=== PATIENT | male | born 1970 | race Caucasian/White ===

== ENCOUNTER 2021-08-17 00:52 | Emergency (ER) | payer BC ==
[~2021-08-17] VITALS: Ht 180.3 cm; Wt 181.4 kg
[2021-08-17 00:52] VITALS: BP_SYST 129
--- NOTE | 2021-08-17 00:52 | NUR ---
Patient biba to bed 7 for evaluation and treatment
--- NOTE | 2021-08-17 01:08 | NUR ---
Dr. Choi [facility] for pt eval
--- NOTE | 2021-08-17 01:12 | NUR ---
PT BIBA TO ED C/O + 1/4 INCH LACERATION TO LEFT LOWER LEG NOTICED AT 12MN, DOES NOT REMEMBER WHAT HAPPENED, NO PAIN, VSS NO S/S OF ACUTE DISTRESS RESTING ON GURNEY RAILS UP
--- NOTE | 2021-08-17 02:06 | NUR ---
VSS pt verbalized feeling no pain, resting in comfort on gurney rails up
[2021-08-17 02:55] VITALS: BP_SYST 129
--- NOTE | 2021-08-17 02:55 | NUR ---
Patient given written and verbal discharge instructions and verbalizes understanding. ER MD discussed with patient the results and treatment provided. Patient in stable condition. ID arm band removed. Patient educated on pain management and to follow up with PMD. Pain Scale 0/10 Opportunity for questions provided and answered.
== END 2021-08-17 02:55 | disposition home or self-care (01) ==
LOC: SED 00:52
DX: I86.8 Varicose veins of other specified sites (principal)
CPT/HCPCS: 99283